=== PATIENT | female | born 1995 | race Caucasian/White ===

== ENCOUNTER 2017-05-27 22:35 | Emergency (ER) | payer OTHER ==
[~2017-05-27] VITALS: Ht 154.9 cm; Wt 84.8 kg
[~2017-05-27 22:35] MED LIST: ADVAIR 250-501 EACH INH; FLONASE ALLERG9.9 ML NS; PREDNISONE20 MG PO; PRENATA CHEWAB1 EACH PO; PROAIR RESPICL90 MCG; PROVENTIL HFA6.7 GM INH; PULMICORT0.5 MG/2 M INH; QVAR7.3 G1 INH; SINGULAIR4 MG; ZANTAC150 MG PO
[2017-05-27] MEDS ORDERED: ZOVIRAX200 MG PO (23:01)
[2017-05-27] MEDS ORDERED: AMOXICILLIN500 MG PO (23:01)
[2017-05-27] MEDS ORDERED: TYLENOL325 MG PO (23:02)
[2017-05-27] MEDS ORDERED: NORCO 5-325 TA1 EACH PO (23:03)
[2017-05-27] MEDS ORDERED: ADVIL200 MG PO (23:03)
[2017-05-27] MEDS ORDERED: ACETAMINOPHEN-1 EAC1 PO (23:46)
== END 2017-05-28 00:08 | disposition home or self-care (01) ==
LOC: ED 22:35
DX: J02.9 Acute pharyngitis, unspecified (principal); H66.92 Otitis media, unspecified, left ear; J45.909 Unspecified asthma, uncomplicated; F17.200 Nicotine dependence, unspecified, uncomplicated; Z79.899 Other long term (current) drug therapy
CPT/HCPCS: 81001; 84703; 99283

== ENCOUNTER 2017-09-06 15:45 | Emergency (ER) | payer OTHER ==
[~2017-09-06] VITALS: Ht 154.9 cm; Wt 84.8 kg
[~2017-09-06 15:45] MED LIST changes: +ACETAMINOPHEN-1 EAC1 PO; +ADVIL200 MG PO; +AMOXICILLIN500 MG PO; +NORCO 5-325 TA1 EACH PO; +TYLENOL325 MG PO; +ZOVIRAX200 MG PO
== END 2017-09-06 15:55 | disposition home or self-care (01) ==
LOC: ED 15:45

== ENCOUNTER 2018-05-20 05:33 | Inpatient (IN) | payer OTHER ==
--- NOTE | 2018-05-20 11:12 | PR ---
[facility] [address] [place], [place] [address] Signed Progress Notes IP Datetime Report Generated by CPEstee: 05/20/2018 11:11 PROGRESS NOTES: [id number] Impression: Normal progression of labor Plan: Continue present management; Anticipate Vaginal Delivery Informed Consent Obtain: Vaginal Delivery; Risks, Benefits and Alternatives Discussed Other Informed Consents: Reviewed intrathecal VITAL SIGNS: [id number] Vital Signs: Reviewed; Within Normal Limits EXAM: [id number] Dilatation: 8.5 Effacement: 90 Station: -2 Uterine Contractions: q2-3 minutes MEMBRANES: [id number] Pooling: Negative Membrane Status: Ruptured Comments: Pt seen and evaluted. Very comfortable w/ intrathecal. Denies pressure or urge to push. FHT reassuring. Reviewed anticipated course of labor/delivery. Anticipate soon. Fetus A: [id number] FHR Baseline: 130 Variability: Moderate 6-25bpm Accelerations: 15X15 Decelerations: None FHR Category: Category I Presentation: Vertex Comments on Fetus A: No evidence of metabolic acidosis Fetus B: [id number] Signing Physician: Noha Hein DO Copies: ~ *Electronically Signed* 05/20/18 1111 NOAH HEIN DO PATIENT NAME: MARILYN PEÑA PROGRESS NOTE DATE OF : [birth year] PHYSICIAN: NOAH HEIN DO RPT #: [id number] REPORT IS CONFIDENTIAL AND NOT TO BE RELEASED WITHOUT AUTHORIZATION
--- NOTE | 2018-05-20 12:06 | PR ---
[facility] [address] [place], [place] [address] Signed Progress Notes IP Datetime Report Generated by CPN: 05/20/2018 12:06 PROGRESS NOTES: [id number] Impression: Normal progression of labor; Reassuring heart rate Procedures: Sterile Vag Exam Plan: Continue present management; Anticipate Vaginal Delivery Informed Consent Obtain: Vaginal Delivery Other Informed Consents: Reviewed intrathecal VITAL SIGNS: [id number] Vital Signs: Reviewed; Within Normal Limits EXAM: [id number] Dilatation: 9.0 Effacement: 90 Station: -1 Uterine Contractions: q2-3 MEMBRANES: [id number] Pooling: Negative Membrane Status: Ruptured Comments: Pt seen and examined. doing well. Feeling increased pressure. Intrathecal starting to wear off some. Continue expectant managment. Anticipate soon Fetus A: [id number] FHR Baseline: 135 Variability: Moderate 6-25bpm Accelerations: 15X15 Decelerations: None FHR Category: Category I Presentation: Vertex Other Presentation: KENNA Comments on Fetus A: No evidence of metabolic acidosis Fetus B: [id number] Signing Physician: Naoh Hein DO Copies: ~ *Electronically Signed* 05/20/18 120 NOAH HEIN DO PATIENT NAME: MARILYN PEÑA PROGRESS NOTE DATE OF : [birth year] PHYSICIAN: NOAH HEIN DO RPT #: [id number] REPORT IS CONFIDENTIAL AND NOT TO BE RELEASED WITHOUT AUTHORIZATION
--- NOTE | 2018-05-21 08:13 | PR ---
[facility] [address] [facility] [place], [place] [address] Signed PP Progress Notes Datetime Report Generated by CPN: 05/21/2018 08:13 SUBJECTIVE: [id number] Pain: Within normal limits Nausea/Vomiting: Denies Flatus: Yes Bowel Movement: No Vital Signs: [id number] Vital Signs: Reviewed; Within Normal Limits EXAM: [id number] Cardiovascular: Normal Respiratory: Normal Abdomen/Uterus: Normal Lochia: Normal Vulva/Perineum: Not Done Breasts: Normal CVA Tenderness: Normal Extremities: Normal Incision: Not Applicable Progress: Normal IMPRESSION/PLAN/PROCEDURES: [id number] Impression: Normal progression Plan: Discharge Progress Notes: Pt seen and examined. Doing well. Ambulating, voiding, and tolerating full diet. Pain and lochia minimal. well. No problems w/ breathing. Desires d/c home today. Planning Nuvaring for pp contraception. Signing Physician: Noah Hein DO Copies: ~ *Electronically Signed* 05/21/18 0813 NOAH HEIN DO PATIENT NAME: MARILYN PEÑA PROGRESS NOTE DATE OF : [birth year] PHYSICIAN: NOAH HEIN DO RPT #: [id number] REPORT IS CONFIDENTIAL AND NOT TO BE RELEASED WITHOUT AUTHORIZATION
== END 2018-05-21 13:15 | disposition home or self-care (01) | DRG 807 ==
LOC: FBC 06:00
PROVIDERS: ADMIT Obstetrics & Gynecology
PROC: 10E0XZZ Delivery of Products of Conception, External Approach (ICD-10-PCS; principal; 2018-05-20)
PROC: 0KQM0ZZ Repair Perineum Muscle, Open Approach (ICD-10-PCS; 2018-05-20)
PROC: 10907ZC Drainage of Amniotic Fluid, Therapeutic from Products of Conception, Via Natural or Artificial Opening (ICD-10-PCS; 2018-05-20)
PROC: 00HU33Z Insertion of Infusion Device into Spinal Canal, Percutaneous Approach (ICD-10-PCS; 2018-05-20)
PROC: 3E0R3NZ Introduction of Analgesics, Hypnotics, Sedatives into Spinal Canal, Percutaneous Approach (ICD-10-PCS; 2018-05-20)
DX: O70.1 Second degree perineal laceration during delivery (principal); Z37.0 Single live birth; Z3A.39 39 weeks gestation of pregnancy; O99.334 Smoking (tobacco) complicating childbirth; F17.210 Nicotine dependence, cigarettes, uncomplicated; O99.52 Diseases of the respiratory system complicating childbirth; J45.909 Unspecified asthma, uncomplicated; O99.344 Other mental disorders complicating childbirth; F32.9 Major depressive disorder, single episode, unspecified; Z79.51 Long term (current) use of inhaled steroids; Z79.899 Other long term (current) drug therapy; Z86.19 Personal history of other infectious and parasitic diseases
CPT/HCPCS: 01965; 36415; 85027; 94640; J7120

== ENCOUNTER → 2019-03-21 | Emergency (ER) | payer OTHER ==
[~2019-03-21] VITALS: Ht 154.9 cm; Wt 84.8 kg
[~2019-03-21] MED LIST changes: +ALBUTEROL2.5 MG/3 M INH; +ZOFRAN4 MG PO
== END ==
LOC: ED 13:33
DX: K59.00 Constipation, unspecified (principal); J45.909 Unspecified asthma, uncomplicated; Z79.899 Other long term (current) drug therapy
CPT/HCPCS: 74177; 80053; 81001; 83690; 84703; 85025; 96374; 99284-25; J2405; J7030; Q9967

== ENCOUNTER 2021-03-05 09:21 | Emergency (ER) | payer OTHER ==
[~2021-03-05] VITALS: Ht 154.9 cm; Wt 71.2 kg
[~2021-03-05 09:21] MED LIST changes: +NEXPLANON68 MG SUB-Q
--- OUTSIDE RECORDS SUMMARY | 2021-03-05 09:24 | XMS ---
PreManage Notification: MARILYN PEÑA Security Database Technician Events No recent Security Events currently on file CRITERIA MET - [facility] CARE PROVIDERS There are no care providers on record at this time. Garret has no Care Guidelines for this patient. Courtney VISIT COUNT (12 MO.) 1 DENITA Roman TOTAL 1 NOTE: Visits indicate total known visits. ED/C VISIT TRACKING (12 MO.) 03/05/2021 09:22 [facility] [place] TYPE: Emergency COMPLAINT: - SOB, DIFFICULTY BREATHING, CHEST TIGHTNESS, INPATIENT VISIT TRACKING (12 MO.) No inpatient visits to display in this time frame [email or web address]
[2021-03-05] MEDS ORDERED: METHYLPHENIDATE36 MG PO (09:32)
[2021-03-05] MEDS ORDERED: ELURYNG VAGINA1 EACH VAGINAL (09:32)
[2021-03-05] MEDS ORDERED: MONTELUKAST SOD10 MG PO (09:32)
[2021-03-05] MEDS ORDERED: PREDNISONE20 MG PO (12:55)
== END 2021-03-05 13:10 | disposition home or self-care (01) ==
LOC: ED 09:21
DX: J45.909 Unspecified asthma, uncomplicated (principal); Z87.891 Personal history of nicotine dependence; Z79.899 Other long term (current) drug therapy; Z20.822 Contact with and (suspected) exposure to COVID-19
CPT/HCPCS: 71045; 80053; 84703; 85025; 85379; 94640; 96374; 96375; 99285-25; J1100; J1200; U0003

== ENCOUNTER 2021-10-21 14:15 | Emergency (ER) | payer OTHER ==
[~2021-10-21] VITALS: Ht 154.9 cm; Wt 71.2 kg
[~2021-10-21 14:15] MED LIST changes: +ELURYNG VAGINA1 EACH VAGINAL; +METHYLPHENIDATE36 MG PO; +MONTELUKAST SOD10 MG PO
--- OUTSIDE RECORDS SUMMARY | 2021-10-21 14:18 | XMS ---
PreManage Notification: MARILYN PEÑA Security Orthotic/Prosthetic Practitioner Events No recent Security Events currently on file CRITERIA MET - [facility] CARE PROVIDERS There are no care providers on record at this time. Garret has no Care Guidelines for this patient. Courtney VISIT COUNT (12 MO.) 2 DENITA Roman TOTAL 2 NOTE: Visits indicate total known visits. ED/C VISIT TRACKING (12 MO.) 10/21/2021 14:16 [facility] [place] TYPE: Emergency COMPLAINT: - BACK SIDE PAIN, NECK TO KNEES 03/05/2021 09:[address] 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
[2021-10-21] MEDS ORDERED: SPIRONOLACTONE50 MG PO (15:54)
== END 2021-10-21 16:34 | disposition home or self-care (01) ==
LOC: ED 14:15
DX: O98.511 Other viral diseases complicating pregnancy, first trimester (principal); U07.1 COVID-19; Z3A.00 Weeks of gestation of pregnancy not specified
CPT/HCPCS: 36415; 80048; 81001; 84702; 85025; 87502; A9270; C9803; J7030; U0003

== ENCOUNTER 2021-12-19 06:45 | Day surgery (SDC) | payer OTHER ==
[~2021-12-19] VITALS: Ht 154.9 cm; Wt 75.9 kg
--- NOTE | ~2021-12-19 | OR ---
[facility] [address] [place], [place] [address] Draft DATE OF OPERATION: 12/19/2021 SURGEON: Ellis Brown MD PREOPERATIVE DIAGNOSES: 1. Chronic frontal sinusitis. 2. Chronic ethmoiditis. 3. Chronic sphenoiditis. 4. Chronic maxillary sinusitis. 5. Deviated nasal septum, nasal obstruction with turbinate hypertrophy. POSTOPERATIVE DIAGNOSES: 1. Chronic frontal sinusitis. 2. Chronic ethmoiditis. 3. Chronic sphenoiditis. 4. Chronic maxillary sinusitis. 5. Deviated nasal septum, nasal obstruction with turbinate hypertrophy. PROCEDURES: 1. Bilateral endoscopic frontoethmoidectomy, 26231-57. 2. Nasal septoplasty, 59933. 3. Endoscopic bilateral sphenoidotomies, 24973-72. 4. Bilateral endoscopic maxillary antrostomies, 28544-10. 5. Bilateral submucous resection of inferior turbinates, 71255-64. INDICATIONS: This 26-year-old female for the last six years has had nonstop recurring infections and suffers in between from sinus headaches, congestion, postnasal drainage, and hyposmia. She has tried besides multiple antibiotics, nasal steroids, decongestants, and antihistamines, none of which gave her relief. CT scan demonstrated lots of hyperplastic mucosa. The turbinates are actually filling up the entire nasal airway. Also, a definite inflammatory chronic disease plugging the left frontal sinus and crowding the ostiomeatal units. The patient had a deviation of the septum, which further crowding on the left side and explained her symptoms adequately and it is felt that surgery would fix that, where the medical treatment could not. DESCRIPTION OF PROCEDURE: The patient was placed in supine position, had an orotracheal intubation placed under general anesthesia. Endoscopic photographs were taken preop, intraoperative, and postoperatively. Examining first of all the right side because the septum was deviated PATIENT NAME: MARILYN PEÑA OPERATIVE REPORT DATE OF : [birth year] REPORT #: [id number] PHYSICIAN: ELLIS BROWN MD PCP: MATTHEW JORDAN REPORT IS CONFIDENTIAL AND NOT TO BE RELEASED WITHOUT AUTHORIZATION [facility] [address] [place], [place] [address] Draft to the left, it was easier to do initially. A 1.5 mL of 1% lidocaine with epinephrine were injected into the middle turbinates and uncinate process region. Then, the anterior inferior portion of middle turbinate was trimmed away with a Thru-Cut ethmoid punch and punch scissors and the microdebrider. A sickle knife was used to incise the uncinate process, then a Thru-Cut ethmoid punch used to section small pieces. Removing it, the maxillary ostium was seen and at the posterior fontanelle, it was widened a little bit with the ethmoid Thru-Cut punch. A curette was used to open up the agger nasi and going from air cell to air cell doing a transethmoidal sphenoidotomy at sphenoid sinus. This was all opened up with the Kerrison forceps, microdebrider, and Thru-Cut ethmoid punch. Switching to a 70-degree coming anteriorly, the base of skull was dissected going up the frontal recess. The frontal sinus was widely opened using the frontal sinus Kerrison punch to take down the beak of the frontal sinus opening it up widely enough for a pencil to fit through. After treating all the ragged mucosa, removing a little shards of bone, piece of nasal pore was placed up into the remnant of the middle turbinate in the lateral ethmoid wall. The septum then had to be repaired, and the incision was placed on the left side, where all the spurring was present. A couple of mL of lidocaine were put into the out and then flap was fashioned with the incision made on the cartilaginous portion of the septum. The patient had a membranous septum piercing that was searched for, but not found with just the same incision was made on the cartilage itself, so that it would not interfere if she wanted a piercing afterwards. Then, lifting up the mucoperichondrium up high and deep over the junction with the bone, periosteum was then elevated and bone from cartilage with the Nancy D knife and the septal button knife and then the blunt end of the caudal dissection tool. This exposed the deviated septum high and that was cut with Poole scissors and removed in pieces with Henry forceps. Inferiorly, the spur was developed creating an inferior tunnel as well as developing the superior and tunneled up over that sharp point and then the osteotome and mallet were used to cut it off at the base and this spur was then removed. The membranous flaps that could be based together and the anterior incision closed with 4-[address] This opened the way to do the left side. Just a little bit of the middle turbinate was trimmed away after putting 3 mL of Marcaine into the septal flap that was based and then another mL of lidocaine or so in the sinus region. After removing a little bit of the anterior inferior portion of middle turbinate with the Thru-Cut ethmoid punch, the uncinate process was removed with a sickle knife and the Thru-Cut punch, and again a little bit of the posterior fontanelle removed to make it wider. Complete ethmoidectomy was then same as the right side, but this time a trans-ostial sphenoidotomy was performed as it was different formation in the right side of the sphenoid for the sphenoid sinus. Once the root could be seen to the sphenoid sinus, the Kerrison forceps were used to remove the rostrum, then switching to a 70-degree scope. The dissection was carried forward looking at the base of the skull up in the frontal recess. The frontal sinus on the patient's left side had a large impinging lateral ethmoid cluster of cells. Sagittal wall was found and removed with the various frontal sinus instruments opening up that frontal sinus PATIENT NAME: MARILYN PEÑA OPERATIVE REPORT DATE OF : [birth year] REPORT #: [id number] PHYSICIAN: ELLIS BROWN MD PCP: MATTHEW JORDAN REPORT IS CONFIDENTIAL AND NOT TO BE RELEASED WITHOUT AUTHORIZATION [facility] [address] [place], [place] [address] Draft very widely as wide as the other side. Prior to opening that, it was closed off with soft tissue. NasoPore placed on that side and then the inferior turbinates, which had gross markings of inflammatory disease and very large. Submucous resection was done on both sides. After injecting with 1 mL of lidocaine on each side, stab incisions were made with 15 blade and then elevation of the mucoperiosteum with Nancy dissection tool was used and then these pieces of bone were fractured off the turbinate bone and removed from the airway. Estimated blood loss was 250 mL. There were no complications. Ellis Brown MD [facility]/MODL /[id number] Copies: ~ PATIENT NAME: MARILYN PEÑA OPERATIVE REPORT DATE OF : [birth year] REPORT #: [id number] PHYSICIAN: ELLIS BROWN MD PCP: MTATHEW JORDAN REPORT IS CONFIDENTIAL AND NOT TO BE RELEASED WITHOUT AUTHORIZATION
[~2021-12-19 06:45] MED LIST changes: +ALLEGRA ALLERGY60 MG PO; +SINGULAIR10 MG PO; +SPIRONOLACTONE50 MG PO; +ZYRTEC10 MG PO
--- NOTE | 2021-12-19 11:24 | NUR ---
12/19/21 1124 Samira Hernández 11:15 PT ARRIVES TO PACU , ORAL AIRWAY IN, UNRESPONDSIVE TO PAIN. RESP EVEN AND UNLABOR, MASK AT 10L'S, DECREASED TO 6L'S.
--- NOTE | 2021-12-19 14:22 | NUR ---
1415 PATIENT ALERT AND ORIENTED. BREATHING EQUAL AND UNLABORED. OXYGEN SATURATIONS ABOVE 95% ON ROOM AIR. PATIENT DENIES ANY PAIN OR NAUSEA. PATIENT EATING A SANDWICH AND DRINKING WATER. PATIENT ABLE TO AMBULATE AND VOID. SMALL AMOUNT OF RED DRAINAGE ON DRIP PAD BELOW NOSE. IVF INFUSING. SCD'S ON. CALL LIGHT WITHIN REACH NO FUTHER NEEDS. NO QUESTIONS AT THIS TIME.
--- NOTE | 2021-12-19 15:15 | NUR ---
[id number] SITTING UP IN BED. RESP EVEN AND UNLABORED. VSS. PATIENT DENIES PAIN AND NAUSEA. DRESSING WITH MODERATED AMOUNT OF RED DRAINAGE. DAD IN ROOM. CALL LIGHT WITHIN REACH. [id number] DRESSING. [id number] INSTRUCTIONS GIVEN TO PATIENT AND HER DAD. ALL QUESTIONS ANSWERED. PATIENT HAD QUESTIONS REGARDING SINUS RINSES. WAS ABLE TO HAVE DR. GILMORE OFFICE SEND OVER A COPY POSTOP INSTRUCTIONS. WHEELCHAIR RIDE PROVIDED TO FRONT OF HOSPITAL.
--- NOTE | 2021-12-19 16:47 | NUR ---
[id number] UP TO RESTROOM. GAIT STEADY AND TOLERATED WELL. PATIENT BACK TO ROOM AND GETTING DRESSED. [id number] CALL FROM DR. SMITH AND TRANSFERED INTO PATIENT ROOM.
--- NOTE | 2021-12-20 15:29 | EKG ---
[facility] [address] [facility] [place] [address] Signed Normal sinus rhythm Normal ECG When compared with ECG of 23-APR-2016 13:28, T wave inversion no longer evident in Inferior leads Nonspecific T wave abnormality has replaced inverted T waves in Lateral leads Confirmed by RENETTA DESAI MD ([id number]) on 12/20/2021 3:29:42 PM Electronically Signed By: RENETTA DESAI MD 12/20/21 1529 PATIENT NAME: MARILYN PEÑA Electrocardiogram DATE OF : [birth year] PHYSICIAN: RENETTA DESAI MD REPORT #: [id number] REPORT IS CONFIDENTIAL AND NOT TO BE RELEASED WITHOUT AUTHORIZATION
== END 2021-12-19 15:30 | disposition home or self-care (01) ==
LOC: DS 06:45
PROVIDERS: ATTEND Otolaryngology
PROC: 09CW4ZZ Extirpation of Matter from Right Sphenoid Sinus, Percutaneous Endoscopic Approach (ICD-10-PCS; 2021-12-19)
PROC: 09C Ear, Nose, Sinus, Extirpation (ICD-10-PCS; 2021-12-19)
PROC: 09TV4ZZ Resection of Left Ethmoid Sinus, Percutaneous Endoscopic Approach (ICD-10-PCS; 2021-12-19)
PROC: 09TU4ZZ Resection of Right Ethmoid Sinus, Percutaneous Endoscopic Approach (ICD-10-PCS; 2021-12-19)
PROC: 09CX4ZZ Extirpation of Matter from Left Sphenoid Sinus, Percutaneous Endoscopic Approach (ICD-10-PCS; principal; 2021-12-19 09:00)
DX: J32.8 Other chronic sinusitis (principal); J34.2 Deviated nasal septum; J34.3 Hypertrophy of nasal turbinates; E11.9 Type 2 diabetes mellitus without complications
CPT/HCPCS: 93005; 93010; 94644; J0330; J0461; J1100; J1885; J2250; J2310; J2405; J2704; J2765; J3010; J7121

== ENCOUNTER 2023-09-19 23:58 | Emergency (ER) | payer OTHER ==
[~2023-09-19] VITALS: Ht 154.9 cm; Wt 83.6 kg
--- OUTSIDE RECORDS SUMMARY | 2023-09-20 | XMS ---
PreManage Notification: MARILYN PEÑA Security Technician Support Association Events No recent Security Events currently on file CRITERIA MET - [facility] CARE PROVIDERS -[facility] Dentist: Clamshell Engineer Current [place] PHONE: [phone] -Nikita- Dentist: Clamshell Engineer [facility] PHONE: [phone] -[place]- Dentist: Clamshell Engineer Current [facility] Dental [facility] PHONE: [phone] [place] [facility] Current PHONE: Unknown Garret has no Care Guidelines for this patient. Courtney VISIT COUNT (12 MO.) 1 DENITA Roman TOTAL 1 NOTE: Visits indicate total known visits. ED/UCC VISIT TRACKING (12 MO.) 09/19/2023 23:58 [facility] [place] TYPE: Emergency COMPLAINT: - VAGINAL BLEEDING INPATIENT VISIT TRACKING (12 MO.) No inpatient visits to display in this time frame [email or web address]
[2023-09-20 00:28] LABS: BASOPHILS 0.5 % (0-2); HEMATOCRIT 34.9 % (35.0-50.0); HEMOGLOBIN 11.8 g/dL (12.0-18.0); LYMPHOCYTES 29.2 % (24-44); MCH 30.4 (27-36); MCHC 33.7 g/dl (30-36); MCV 90.3 fl (81-99); MONOCYTES 6.5 % (0-12); NEUTROPHILS 58.8 % (39-80); PLATELET COUNT 336 K/uL (140-440); RBC 3.87 M/ul (4.3-5.7); RDW 14.3 (10.5-15.0)
[2023-09-20 00:35] LABS: ANION GAP 13.6 (7-21); BUN/CREATININE RATIO 26.47 (6.0-28.6); CALCIUM 9.1 mg/dL (8.5-10.1); CREATININE, SERUM 0.68 mg/dL (0.55-1.02); POTASSIUM 4.6 mmol/L (3.5-5.1)
[2023-09-20 01:10] LABS: ABO A; ANTIBODY SCREEN NEGATIVE; RH POSITIVE
[2023-09-20 01:11] LABS: ABO A; RH POSITIVE
[2023-09-20 03:38] VITALS: BP 101/45
== END 2023-09-20 03:38 | disposition home or self-care (01) ==
LOC: ED 23:58
PROVIDERS: Internal Medicine
DX: O20.9 Hemorrhage in early pregnancy, unspecified (principal); Z3A.01 Less than 8 weeks gestation of pregnancy; Z87.891 Personal history of nicotine dependence; Z88.1 Allergy status to other antibiotic agents
CPT/HCPCS: 36415; 76801; 76817; 80048; 84702; 84703; 85025; 86850; 86900; 86901; 99284-25